=== PATIENT | female | born 1965 | race Caucasian/White ===

== ENCOUNTER 2016-08-29 16:21 | Emergency (ER) | payer OTHER ==
[~2016-08-29] VITALS: Ht 154.9 cm; Wt 80.0 kg
[~2016-08-29 16:21] MED LIST: ADVAI500I PO; DUONI NEB; ENOX120P SQ; FERR325T PO; FLON0.053; FURO1TAB93 PO; KCL10C PO; MONT10TA2 PO; OMEP20TA39 PO; PRAV10 PO; PRED10 PO; SYNT25TA PO; TIOT18I; VENL50TA PO; WARF6 PO; XANA1TAB6 PO; Z.0.OXYGEN INH
[2016-08-29 16:22] VITALS: BP 134/79; PULSE 113; RESP 20; TEMP 98.9; O2SAT 92
[2016-08-29] MEDS ORDERED: SODIUM CHLOR 0.9% 1000 ML INJ 1,000 ML IV SCH (18:25)
[2016-08-29] MEDS ORDERED: SODIUM CHLORIDE 0.9% FLUSH 10 ML FLUSH IV FLUSH PRN (18:30)
[2016-08-29] MEDS ORDERED: HYDROmorphone HCL PF 1 MG/ML VIAL IVS ONE (18:30)
[2016-08-29] MEDS ORDERED: ONDANSETRON HCL 4 MG/2 ML VIAL IVP ONE (18:30)
[2016-08-29 18:40] VITALS: RESP 16; O2SAT 98
[2016-08-29] MEDS ORDERED: IPRASOL INH (18:41)
[2016-08-29] MEDS ORDERED: PRAV40TA2 PO (18:41)
[2016-08-29] MEDS ORDERED: FE FCAP PO (18:41)
[2016-08-29] MEDS ORDERED: OMEP40CA2 PO (18:41)
[2016-08-29] MEDS ORDERED: LEVO.05 PO (18:41)
[2016-08-29] MEDS ORDERED: PERC10TA27 PO (18:41)
[2016-08-29] MEDS ORDERED: ZOFR4TAB PO (18:41)
[2016-08-29] MEDS ORDERED: XANA2TAB2 PO (18:41)
[2016-08-29] MEDS ORDERED: FLUT1SPR5 EACH NARE (18:41)
[2016-08-29] MEDS ORDERED: SPIRCAP INH (18:41)
[2016-08-29] MEDS ORDERED: ADVA500A INH (18:41)
[2016-08-29] MEDS ORDERED: MONT10TA2 PO (18:41)
[2016-08-29] MEDS ORDERED: IPRA17I INH (18:41)
--- NOTE | 2016-08-29 19:16 | PD ---
Physical Exam Date Seen by Provider: Aug 29, 2016 Time Seen by Provider: 19:15 Narrative Accepted in transfer of care from Dr. Phillips GENERAL: Well-developed well-nourished female in no acute distress no respiratory distress GASTROINTESTINAL: Abdomen soft, non-tender, nondistended. Data Data Last Documented VS Vital Signs Date Time Temp Pulse Resp B/P Pulse Ox O2 Delivery O2 Flow Rate FiO2 08/29/16 21:52 99.6 79 20 138/73 95 Room Air Orders Complete Blood Count With Diff (08/29/16 18:25) Comprehensive Metabolic Panel (08/29/16 18:25) Lipase (08/29/16 18:25) Urinalysis - C+S If Indicated (08/29/16 18:25) Ct Abd/Pel W Iv Contrast(Rout) (08/29/16 18:25) Iv Access Insert/Monitor (08/29/16 18:25) Ecg Monitoring (08/29/16 18:25) Oximetry (08/29/16 18:25) Ondansetron Inj (Zofran Inj) (08/29/16 18:30) Sodium Chlor 0.9% 1000 Ml Inj (Ns 1000 M (08/29/16 18:25) Sodium Chloride 0.9% Flush (Ns Flush) (08/29/16 18:30) Hydromorphone Pf Inj (Dilaudid Pf Inj) (08/29/16 18:30) Ed Urine Pregnancytest Poc (08/29/16 18:25) C Diff Toxin Pcr (08/29/16 18:25) Ondansetron Inj (Zofran Inj) (08/29/16 20:45) Pantoprazole Inj (Protonix Inj) (08/29/16 20:45) Sodium Chlor 0.9% 1000 Ml Inj (Ns 1000 M (08/29/16 21:15) Iohexol 350 Inj (Omnipaque 350 Inj) (08/29/16 21:06) Metronidazole 500 Mg Inj (Flagyl 500 Mg (08/29/16 22:00) Labs Laboratory Tests Test 08/29/16 08/29/16 18:30 20:20 White Blood Count 16.3 TH/MM3 Red Blood Count 5.08 MIL/MM3 Hemoglobin 16.0 GM/DL Hematocrit 47.4 % Mean Corpuscular Volume 93.2 FL Mean Corpuscular Hemoglobin 31.5 PG Mean Corpuscular Hemoglobin 33.8 % Concent Red Cell Distribution Width 13.9 % Platelet Count 254 TH/MM3 Mean Platelet Volume 9.7 FL Neutrophils (%) (Auto) 70.2 % Lymphocytes (%) (Auto) 20.5 % Monocytes (%) (Auto) 8.3 % Eosinophils (%) (Auto) 0.6 % Basophils (%) (Auto) 0.4 % Neutrophils # (Auto) 11.5 TH/MM3 Lymphocytes # (Auto) 3.4 TH/MM3 Monocytes # (Auto) 1.4 TH/MM3 Eosinophils # (Auto) 0.1 TH/MM3 Basophils # (Auto) 0.1 TH/MM3 CBC Comment AUTO DIFF Differential Total Cells 100 Counted Neutrophils % (Manual) 58 % Band Neutrophils % 10 % Lymphocytes % 28 % Monocytes % 3 % Basophils % 1 % Neutrophils # (Manual) 11.1 TH/MM3 Differential Comment FINAL DIFF MANUAL Platelet Estimate NORMAL Platelet Morphology Comment ENLARGED Sodium Level 139 MEQ/L Potassium Level 4.1 MEQ/L Chloride Level 107 MEQ/L Carbon Dioxide Level 25.1 MEQ/L Anion Gap 7 MEQ/L Blood Urea Nitrogen 7 MG/DL Creatinine 0.59 MG/DL Estimat Glomerular Filtration 109 ML/MIN Rate Random Glucose 91 MG/DL Calcium Level 8.6 MG/DL Total Bilirubin 0.3 MG/DL Aspartate Amino Transf 14 U/L (AST/SGOT) Alanine Aminotransferase 27 U/L (ALT/SGPT) Alkaline Phosphatase 85 U/L Total Protein 7.1 GM/DL Albumin 3.1 GM/DL Lipase 117 U/L Urine Color YELLOW Urine Turbidity HAZY Urine pH 6.0 Urine Specific [place] 1.025 Urine Protein 30 mg/dL Urine Glucose (UA) NEG mg/dL Urine Ketones 40 mg/dL Urine Occult Blood LARGE Urine Nitrite NEG Urine Bilirubin SMALL Urine Urobilinogen 2.0 MG/DL Urine Leukocyte Esterase NEG Urine RBC 37 /hpf Urine WBC 1 /hpf Urine Squamous Epithelial 3 /hpf Cells Urine Hyaline Casts 3 /lpf Urine Mucus MANY /lpf Microscopic Urinalysis Comment CULT NOT INDICATED MDM Medical Record Reviewed: Yes Supervised Visit with MONA: No Interpretation(s) CBC & BMP Diagram 08/29/16 18:30 Vital Signs Date Time Temp Pulse Resp B/P Pulse Ox O2 Delivery O2 Flow Rate FiO2 08/29/16 18:40 16 98 Room Air 08/29/16 18:05 17 08/29/16 16:22 98.9 113 20 134/79 92 Room Air Differential Diagnosis Accepted in transfer of care from Dr. Phillips please refer to her dictation Narrative Course Accepted in transfer of care from Dr. Phillips; follow up of CT and disposition Patient is awaiting CT imaging; states pain is fairly well-controlled; states she is unable to produce a stool specimen. It is now 9:53 PM patient is normotensive reports feeling improved CT abdomen and pelvis shows no evidence for obstruction that show focal area of colitis. Patient receiving a one-time dose of Flagyl 500 mg IV remains afebrile. Patient will be given trial of oral hydration. If patient is able to handle oral hydration therapy would be to discharge with prescription for Flagyl and follow-up with her primary care provider. At 10:40 PM patient is clinically improved able to take oral hydration well desirous of being discharged to home in the care of her significant other will be given prescription for oral Flagyl and encouraged to follow-up with her primary care provider; patient encouraged to follow clear liquid diet for next 12-24 hours advance as tolerated to bland diet. Patient encouraged to monitor temperature every 4 hours with thermometer and to take acetaminophen for fever 100.4F or greater and should she have any ongoing fever or change in condition or concerns she needs to return to the emergency department for further evaluation. Patient able to tolerate oral hydration well and stable for outpatient management stool specimen collected and sent for resulting for enteric pathogens and for C. difficile patient will be discharged with prescription for Flagyl. HemaPrompt Test Point of Care Internal Pos. & Neg. Controls: Passed Fecal Specimen Occult Blood: Negative Diagnosis Primary Impression: Colitis Referrals: Primary Care Physician 2 days Patient Instructions: General Instructions, Narcotic given in the ED Additional Instruction: Increase fluid hydration Follow clear liquid diet for next 12-24 hours advance as tolerated to bland/ Aubrey diet then regular diet as tolerated Complete course of antibiotic as prescribed Monitor temperature every 4 hours with thermometer take acetaminophen as needed for fever 100.4F or greater Return to the emergency department for any concerns or change in condition Med/Other Pt SpecificInfo: Prescription(s) given Scripts Metronidazole (Flagyl)500 Mg [id number] Mg PO QID 10 Days Ref 0 Prov:Maryam Santo MD 08/29/16 Disposition: 01 DISCHARGE HOME Condition: Stable Maryam Santo MD Aug 29, 2016 19:16
[2016-08-29 19:25] LABS: ALKALINE PHOSPHATASE 85 U/L (45-117); ALT (GPT) 27 U/L (10-53); ANION GAP 7 MEQ/L (5-15); AST (GOT) 14 U/L (15-37); BICARBONATE 25.1 MEQ/L (21.0-32.0); BLOOD UREA NITROGEN 7 MG/DL (7-18); CHLORIDE 107 MEQ/L (98-107); GLOMERULAR FILTRATION RATE 109 ML/MIN (>89); SODIUM (NA) 139 MEQ/L (136-145); TOTAL BILIRUBIN ADULT 0.3 MG/DL (0.2-1.0)
[2016-08-29 19:27] LABS: POTASSIUM 4.1 MEQ/L (3.5-5.1)
--- NOTE | 2016-08-29 19:30 | PD ---
HPI Chief Complaint: Abdominal Pain Time Seen by Provider: 19:15 Travel History International Travel<30 days: No Contact w/Intl Traveler<30days: No Traveled to known affect area: No History of Present Illness HPI This is a 50-year-old female who presents to the emergency department with 3 days of abdominal pain described as a soreness in the mid abdomen, constant, severe, associated with multiple episodes of vomiting and copious watery diarrhea. She describes the diarrhea is nonbloody. She did recently complete a course of Ceftin for an otitis media. She also has a history of diverticulitis. She denies any fevers or chills. PFSH Past Medical History Asthma: Yes Blood Disorders: No Anxiety: Yes Depression: Yes Heart Rhythm Problems: Yes (ST) Cancer: Yes (THYROID) Cardiovascular Problems: Yes High Cholesterol: Yes Chemotherapy: No Chest Pain: No Congestive Heart Failure: Yes (NEW ONSET) COPD: Yes Diabetes: Yes Patient Takes Glucophage: No Diminished Hearing: No Endocrine: Yes (CUSHINGS DISEASE) Gastrointestinal Disorders: Yes (HEPATOMEGALY, ULCERS) Genitourinary: Yes (KIDNEY SURGERY WHEN 4 MONTHS OLD WITH STENTS IN RIGHT) Immune Disorder: No Implanted Vascular Access Dvce: Yes Musculoskeletal: Yes (ATHRITIS HANDS,BACK,NECK PROBLEMS) Neurologic: No Psychiatric: Yes (PANIC ATTACKS, BIPOLAR) Reproductive: No Respiratory: Yes (CHRONIC BRONCHITIS, SINUS POLYPS) Radiation Therapy: No Sleep Apnea: Yes (CPAP) Thyroid Disease: Yes Tetanus Vaccination: > 5 Years Influenza Vaccination: Yes ?: Not Past Surgical History Cholecystectomy: Yes Other Surgery: Yes (PARTIAL THYROIDECTOMY, CHOLECYSTECTOMY,LIVER SURGERY , KIDNEY SURGERY 2MONT) Social History Alcohol Use: No Tobacco Use: Yes (1/2 PPD) Substance Use: No Allergies-Medications (Allergen,Severity, Reaction): Coded Allergies: Avelox (Verified Allergy, Unknown, HIVES, 08/29/16) Cipro (Verified Allergy, Unknown, HIVES, 08/29/16) Doxycycline (Verified Allergy, Unknown, HIVES, 08/29/16) Levaquin (Verified Allergy, Unknown, HIVES, 08/29/16) Theophylline (Verified Allergy, Unknown, 03/20/14) PT DOESN'T REMEMBER DUE TO WAS YOUNG Reported Meds & Prescriptions Reported Meds & Active Scripts Active Reported Duoneb (Ipratropium-Albuterol Neb) 0.5-2.5 Mg/3 Ml Neb 1 Nebule INH Q6HR NEB PRN Xanax (Alprazolam) 2 Mg Tab 2 Mg PO TID Integra (Multi-Vit/Iron-B Comp-Vit C) 62.5-62.5-40-3 mg Cap 1 Cap PO DAILY Flonase Nasal [place] (Fluticasone Nasal [place]) 50 Mcg/Act [place] 2 [place] EACH NARE DAILY PRN Advair Diskus Inh (Fluticasone-Salmeterol Inh) 500-50 Mcg/Blist Aer 1 Puff INH BID Rinse mouth after use. Singulair (Montelukast Sodium) 10 Mg Tab 10 Mg PO HS Omeprazole 40 Mg Cap 40 Mg PO DAILY Pravastatin 40 Mg Tab 40 Mg PO HS Synthroid (Levothyroxine Sodium) 50 Mcg Tab 50 Mcg PO DAILY Spiriva Handihaler (Tiotropium Inh) 18 Mcg Cap 18 Mcg INH DAILY 1 capsule = 18 mcg Zofran (Ondansetron HCl) 4 Mg Tab 4 Mg PO Q4-6H PRN Percocet (Oxycodone-Acetaminophen) 10-325 mg Tab 1 Tab PO Q6H PRN Atrovent HFA 12.9 GM Inh (Ipratropium [place]) 17 Mcg/Act Aer 2 Puff INH BID PRN Review of Systems Except as stated in HPI: all other systems reviewed are Neg Physical Exam Narrative GENERAL:Well appearing, no acute distress SKIN: Warm and dry. HEAD: Atraumatic. Normocephalic. EYES: Pupils equal and round. No injection or drainage. ENT: Moist mucous membranes NECK: Trachea midline. CARDIOVASCULAR: Regular rate and rhythm. No murmur appreciated. RESPIRATORY: Clear to auscultation. Breath sounds equal bilaterally. GASTROINTESTINAL: Abdomen soft, tender to palpation diffusely, worse in the periumbilical area, with no rebound or guarding MUSCULOSKELETAL: No obvious deformities. NEUROLOGICAL: Awake and alert. No obvious cranial nerve deficits. Moving all extremities. PSYCHIATRIC: Appropriate mood and affect; insight and judgment normal. Data Data Last Documented VS Vital Signs Date Time Temp Pulse Resp B/P Pulse Ox O2 Delivery O2 Flow Rate FiO2 08/29/16 18:40 16 98 Room Air 08/29/16 16:22 98.9 113 134/79 Orders Complete Blood Count With Diff (08/29/16 18:25) Comprehensive Metabolic Panel (08/29/16 18:25) Lipase (08/29/16 18:25) Urinalysis - C+S If Indicated (08/29/16 18:25) Ct Abd/Pel W Iv Contrast(Rout) (08/29/16 18:25) Iv Access Insert/Monitor (08/29/16 18:25) Ecg Monitoring (08/29/16 18:25) Oximetry (08/29/16 18:25) Ondansetron Inj (Zofran Inj) (08/29/16 18:30) Sodium Chlor 0.9% 1000 Ml Inj (Ns 1000 M (08/29/16 18:25) Sodium Chloride 0.9% Flush (Ns Flush) (08/29/16 18:30) Hydromorphone Pf Inj (Dilaudid Pf Inj) (08/29/16 18:30) Ed Urine Pregnancytest Poc (08/29/16 18:25) C Diff Toxin Pcr (08/29/16 18:25) Labs Laboratory Tests Test 08/29/16 18:30 Sodium Level 139 MEQ/L Potassium Level 4.1 MEQ/L Chloride Level 107 MEQ/L Carbon Dioxide Level 25.1 MEQ/L Anion Gap 7 MEQ/L Blood Urea Nitrogen 7 MG/DL Creatinine 0.59 MG/DL Estimat Glomerular Filtration 109 ML/MIN Rate Random Glucose 91 MG/DL Calcium Level 8.6 MG/DL Total Bilirubin 0.3 MG/DL Aspartate Amino Transf 14 U/L (AST/SGOT) Alanine Aminotransferase 27 U/L (ALT/SGPT) Alkaline Phosphatase 85 U/L Total Protein 7.1 GM/DL Albumin 3.1 GM/DL Lipase 117 U/L MDM Medical Decision Making Medical Screen Exam Complete: Yes Emergency Medical Condition: Yes Interpretation(s) Afebrile, tachycardic Differential Diagnosis C. difficile, colitis, gastroenteritis, dehydration, electrolyte abnormality, diverticulitis Narrative Course This is a 50-year-old female who presents to the emergency department with nausea vomiting, diarrhea and abdominal pain. She is quite tender on exam. She is placed on a monitor and an IV was established. Labs were obtained which will be followed up by the oncoming physician. I think if her CT scan is reassuring her demonstrates colitis I would treat her empirically for possible C. difficile. Miri Phillips MD Aug 29, 2016 19:30
[2016-08-29 19:35] LABS: AUTOMATED NEUTROPHIL # 11.5 TH/MM3 (1.8-7.7); BASOPHIL # 0.1 TH/MM3 (0-0.2); BASOPHIL % 0.4 % (0.0-2.0); EOSINOPHIL # 0.1 TH/MM3 (0-0.4); EOSINOPHIL % 0.6 % (0.0-4.0); HEMATOCRIT 47.4 % (35.0-46.0); HEMO FLAGS AUTO DIFF; LYMPH % 20.5 % (9.0-44.0); LYMPHOCYTE # 3.4 TH/MM3 (1.0-4.8); MEAN CELL VOLUME 93.2 FL (80.0-100.0); MEAN CORPUSCULAR HEMOGLOBIN 31.5 PG (27.0-34.0); MEAN CORPUSCULAR HGB CONC 33.8 % (32.0-36.0); MONO % 8.3 % (0.0-8.0); NEUT % 70.2 % (16.0-70.0); PLATELET COUNT 254 TH/MM3 (150-450); RED BLOOD COUNT 5.08 MIL/MM3 (4.00-5.30); RED CELL DISTRIBUTION WIDTH 13.9 % (11.6-17.2); WHITE BLOOD COUNT 16.3 TH/MM3 (4.0-11.0)
[2016-08-29 20:20] VITALS: BP 94/52; PULSE 84; RESP 21; O2SAT 95
[2016-08-29 20:38] LABS: BANDS 10 % (0-6); BASOPHILS 1 % (0-2); NEUTROPHIL # MANUAL DIFF 11.1 TH/MM3 (1.8-7.7); POLYS (SEG NEUTROPHILS) 58 % (16-70); WBC DIFF SAMPLE 100
[2016-08-29 20:39] LABS: PLATELET ESTIMATE SMEAR NORMAL (NORMAL); PLATELET MORPHOLOGY ENLARGED (NORMAL); SCAN/DIFF FINAL DIFF MANUAL
[2016-08-29] MEDS ORDERED: PANTOPRAZOLE SODIUM 40 MG VIAL IV PUSH ONE (20:45)
[2016-08-29] MEDS ORDERED: ONDANSETRON HCL 4 MG/2 ML VIAL IV PUSH ONE (20:45)
[2016-08-29 20:50] LABS: BLOOD, URINE LARGE (NEG); COMMENT (UR) CULT NOT INDICATED; CULTURE IF INDICATED CULT NOT INDICATED; GLUCOSE,URINE NEG (NEG); HYALINE CAST, URINE 3 /lpf (RARE); KETONE, URINE 40 mg/dL (NEG); MUCUS URINE MANY /lpf (OCC); NITRITE,URINE NEG (NEG); SQUAMOUS EPITHELIAL CELL URINE 3 /hpf (0-5); URINE COLOR YELLOW (YELLW/STRAW)
[2016-08-29] MEDS ORDERED: IOHEXOL 350 MG/ML 10 ML VIAL (for RAD DIAG) IV ONE (21:06)
[2016-08-29] MEDS ORDERED: SODIUM CHLOR 0.9% 1000 ML INJ 1,000 ML IV ONE (21:15)
--- NOTE | 2016-08-29 21:26 | RADRPT ---
EXAM DATE/TIME: 08/29/2016 21:04 [facility] COMPARISON: CT PULMONARY ANGIOGRAM, March 21, 2014, 15:21. INDICATIONS : Abdominal pain with nausea and vomiting. IV CONTRAST: 100 cc Omnipaque 350 (iohexol) IV ORAL CONTRAST: No oral contrast ingested. RADIATION DOSE: 16.00 CTDIvol (mGy) MEDICAL HISTORY : Congestive heart failure. Diabetes mellitus type 1. Thyroid cancer. SURGICAL HISTORY : Cholecystectomy. Right kidney stent. Liver surgery. ENCOUNTER: Initial ACUITY: 4 - 6 days PAIN SCALE: 5/10 LOCATION: Bilateral lower quadrant TECHNIQUE: Volumetric scanning of the abdomen and pelvis was performed. Using automated exposure control and ad justment of the mA and/or kV according to patient size, radiation dose was kept as low as reasonably achievable to obtain optimal diagnostic quality images. FINDINGS: LOWER LUNGS: The visualized lower lungs are clear. LIVER: Homogeneous density without lesion. There is no dilation of the biliary tree. Gallbladder surgically absent.. SPLEEN: Normal size without lesion. PANCREAS: Within normal limits. KIDNEYS: Normal in size and shape. There is no mass, stone or hydronephrosis. ADRENAL GLANDS: Mild nodular enlargement of left adrenal gland. VASCULAR: There is no aortic aneurysm. BOWEL/MESENTERY: v ileus mild concentric wall thickening involving the right colon. Appearance would be most consisten t with colitis. There is no evidence of bowel obstruction. Occasional distal colonic diverticula with out surrounding inflammatory change. ABDOMINAL WALL: Within normal limits. RETROPERITONEUM: There is no lymphadenopathy. BLADDER: No wall thickening or mass. REPRODUCTIVE: Enlarged fibroid uterus. INGUINAL: There is no lymphadenopathy or hernia. MUSCULOSKELETAL: Within normal limits for patient age. CONCLUSION: Proximal colitis. Fibroid uterus. Vasiliy Boucher MD on August 29, 2016 at 21:19 Board Certified Radiologist. This report was verified electronically.
[2016-08-29 21:52] VITALS: BP 138/73; PULSE 79; RESP 20; TEMP 99.6; O2SAT 95
[2016-08-29] MEDS ORDERED: metroNIDAZOLE 500 MG INJ 100 ML IV ONE (22:00)
[2016-08-29] MEDS ORDERED: METR-1 PO (23:16)
[2016-08-30 00:25] LABS: C. DIFF EPI 027 PRESUMPTIVE NEGATIVE (NEGATIVE); C. DIFF TOXIN PCR NEGATIVE (NEGATIVE)
== END 2016-08-30 00:32 | disposition home or self-care (01) ==
LOC: NEPC 16:21
DX: K52.9 Noninfective gastroenteritis and colitis, unspecified (principal); E11.9 Type 2 diabetes mellitus without complications; E78.00 Pure hypercholesterolemia, unspecified; J44.9 Chronic obstructive pulmonary disease, unspecified; F17.210 Nicotine dependence, cigarettes, uncomplicated
CPT/HCPCS: 74177; 80053; 81001; 83690; 84703; 85007; 85027; 87493; 96374; 96375; 96376; 99284; C9113; J1170; J2405; J7030; Q9967